=== PATIENT | female | born 1955 ===

== ENCOUNTER 2022-02-07 04:55 | Day surgery (SDC) | payer OTHER ==
[~2022-02-07 04:55] MED LIST: ATENOLOL50 MG PO; CARDURA1 MG PO
== END 2022-02-07 16:40 | disposition home or self-care (01) ==
LOC: CIR.AMB 04:55
PROVIDERS: ATTEND Orthopaedic Surgery
DX: M23.222 Derangement of posterior horn of medial meniscus due to old tear or injury, left knee (principal); I10 Essential (primary) hypertension; Z88.0 Allergy status to penicillin; Z88.6 Allergy status to analgesic agent; Z20.822 Contact with and (suspected) exposure to COVID-19; Z88.8 Allergy status to other drugs, medicaments and biological substances; M12.262 Villonodular synovitis (pigmented), left knee; M23.8X2 Other internal derangements of left knee